=== PATIENT | male | born 1950 | race Caucasian/White ===

== ENCOUNTER → 2016-05-01 | Outpatient (CLI) | payer OTHER ==
[2016-05-01 13:27] LABS: BASOPHILS # (AUTO) 0.01 10*3/UL; BASOPHILS % (AUTO) 0.1 % (0-1); EOSINOPHILS # (AUTO) 0.08 10*3/UL; HEMATOCRIT 39.8 % (42.0-52.0); HEMOGLOBIN 13.8 g/dL (14.0-18.0); LYMPHOCYTES # (AUTO) 0.71 10*3/uL; MEAN CORPUSCULAR HEMOGLOBIN 29.9 PG (27-31); MEAN CORPUSCULAR HGB CONC 34.7 g/dL (33-37); MEAN CORPUSCULAR VOLUME 86.1 FL (80-90); MEAN PLATELET VOLUME 9.6 FL (7.4-12.2); MONOCYTES # (AUTO) 1.08 10*3/UL (0.3-0.8); MONOCYTES % (AUTO) 13.2 % (5-15); NEUTROPHILS # (AUTO) 6.27 10*3/UL; NEUTROPHILS % (AUTO) 76.4 % (50-80); RED BLOOD COUNT 4.62 10^6/uL (4.70-6.10)
[2016-05-01 13:31] LABS: BLOOD UREA NITROGEN 26 mg/dL (7-22); BUN/CREATININE RATIO 23.63 (6-20); CALCIUM 9.6 mg/dL (8.7-10.7); EST GLOMERULAR FILTRATION > 60 (>60 ml/min/1.73m(2)); SERUM ALBUMIN 4.1 g/dL (3.5-4.8)
[2016-05-01 13:34] LABS: PLATELET MORPHOLOGY COMMENT NORMAL MORPHOLOGY (NORM); RBC MORPHOLOGY COMMENT NORMAL MORPHOLOGY (NORM); WBC MORPHOLOGY COMMENT NORMAL MORPHOLOGY (NORM)
[2016-05-01 13:52] LABS: FREE T4 (FREE THYROXINE) 1.28 ng/dL (0.93-1.71)
--- NOTE | 2016-05-01 14:07 | DI ---
HISTORY: Cough. FINDINGS: The heart is within normal limits with slight tortuosity of the dorsal aorta. There appea rs to be an area of early infiltrate in the left mid lung field extending from the left hilar region. The lung stokes are otherwise essentially clear. IMPRESSION: 1. Early left mid lung infiltrate extends from the left hilar region. Clinical correlation is reque sted.
== END ==
LOC: RAD 12:07
PROVIDERS: ATTEND Physician Assistant
DX: R05 Cough (principal); J18.9 Pneumonia, unspecified organism
CPT/HCPCS: 36415; 71020; 80053; 84439; 84443; 85025; 87040